=== PATIENT | female | born 1965 | race Caucasian/White ===

== ENCOUNTER 2017-03-07 23:50 | Observation (INO) | payer OTHER ==
[~2017-03-07] VITALS: Ht 147.3 cm; Wt 51.5 kg
[2017-03-08 00:50] LABS: MCH 30.5 PG (29.0-34.0); MCHC 34.5 G/DL (30.0-36.0); MCV 88.5 FL (83-99); MEAN PLAT.VOLUME 10.4 uM^3 (9.5-12.4); PLATELET COUNT 244 K/uL (156-360); RBC DIS.WIDTH-CV 12.4 % (11.8-14.6); RBC DIS.WIDTH-SD 39.8 % (39-53); RED BLOOD COUNT 4.52 M/uL (3.80-5.20); WHITE BLOOD COUNT 6.9 K/uL (4.1-10.2)
[2017-03-08 01:00] LABS: CHLORIDE 105 mEq/L (99-109); POTASSIUM 3.4 mEq/L (3.7-5.4); SODIUM 138 mEq/L (136-147)
[2017-03-08 01:02] LABS: GLUCOSE 100 mg/dL (70-99)
[2017-03-08 01:03] LABS: ANION GAP 9 MEQ/L (2-14)
[2017-03-08 01:06] LABS: GFR ESTIMATE (CALCULATED) > 59 mL/min/
[2017-03-08 01:07] LABS: UREA NITROGEN (BUN) 11 mg/dL (9-23)
[2017-03-08 01:19] LABS: TROP-I INTERPRETATION NEGATIVE; TROPONIN-I < 0.01 ng/mL (0.0-0.30)
[2017-03-08 01:23] LABS: D-DIMER ELISA 0.34 mg/L FEU (< 0.57)
[2017-03-08 03:31] LABS: TROP-I INTERPRETATION NEGATIVE; TROPONIN-I < 0.01 ng/mL (0.0-0.30)
[2017-03-08 07:25] VITALS: BP 107/67
[2017-03-08 08:00] VITALS: BP 109/55
[2017-03-08 11:43] VITALS: BP 88/56
[2017-03-08] MEDS ORDERED: VALIUM2 MG PO (12:02)
[2017-03-08] MEDS ORDERED: PRAVACHOL40 MG PO (12:25)
[2017-03-08] MEDS ORDERED: ASPIRIN EC325 MG PO (12:25)
[2017-03-08 12:40] VITALS: BP 94/57
[2017-03-08 12:54] LABS: AMPHETAMINES QUANT VALUE 0 NG/ML; BARBITUATES QUANT VALUE 0 NG/ML; BENZODIAZEPINES QUANT VALUE 0 NG/ML; BENZODIAZEPINES, URINE SCREEN Negative (200 ng/mL); MARIJUANA QUANT VALUE 0 NG/ML; OPIATES QUANTITATIVE VALUE 0 NG/ML; PHENCYCLIDINE QUANT VALUE 0 NG/ML
[2017-03-08 13:11] LABS: TROP-I INTERPRETATION NEGATIVE; TROPONIN-I 0.02 ng/mL (0.0-0.30)
[2017-03-08 15:47] VITALS: BP 101/58
[2017-03-08 18:59] LABS: TROP-I INTERPRETATION NEGATIVE; TROPONIN-I < 0.01 ng/mL (0.0-0.30)
== END 2017-03-08 20:06 | disposition home or self-care (01) ==
LOC: EME 23:50 → EDOF 03-08 06:03 → 5WEST 03-08 07:19
PROVIDERS: Emergency Medicine; Hospitalist
DX: R07.9 Chest pain, unspecified (principal); R94.31 Abnormal electrocardiogram [ECG] [EKG]; F41.0 Panic disorder [episodic paroxysmal anxiety]; R00.2 Palpitations; F41.9 Anxiety disorder, unspecified; F17.200 Nicotine dependence, unspecified, uncomplicated; Z88.5 Allergy status to narcotic agent
CPT/HCPCS: 71020; 80048; 80306 90; 84443; 84484; 85027; 85379; 93005; 99281; 99285; G0378; J1650; J7030